=== PATIENT | female | born 1990 | race American Indian/Alaskan Native ===

== ENCOUNTER 2017-05-29 21:52 | Emergency (ER) | payer MEDICAID, OTHER ==
[2017-05-29] MEDS ORDERED: Sodium Chloride 0.9% 1,000 ML IV ONE (22:23)
--- NOTE | 2017-05-29 22:23 | C.PDOC ---
History Of Present Illness 27 y/o female A2 presents to ED with complaints of abdominal pain and constipation for 10 days. Patient states she has been eating more vegetables but has not had a bowel movement for 1 week. Patient denies fever, chills, nausea, vomiting, vaginal bleeding or any other complaints at this time. Time Seen by Provider: 05/29/17 22:22 Chief Complaint (Nursing): Abdominal Pain History Per: Patient History/Exam Limitations: no limitations Onset/Duration Of Symptoms: Days Current Symptoms Are (Timing): Still Present Past Medical History Reviewed: Historical Data, Nursing Documentation, Vital Signs Vital Signs: Last Vital Signs Temp 98.5 F 05/30/17 01:34 Pulse 88 05/30/17 01:34 Resp 16 05/30/17 01:34 BP 92/59 L 05/30/17 01:34 Pulse Ox 100 05/30/17 01:34 Family History: States: No Known Family Hx - Social History Hx Alcohol Use: No Hx Substance Use: No Review Of Systems Constitutional: Negative for: Fever, Chills Gastrointestinal: Positive for: Abdominal Pain, Constipation. Negative for: Nausea, Vomiting Genitourinary: Negative for: Vaginal Bleeding Physical Exam - Physical Exam Appears: No Acute Distress Skin: Warm Head: Normacephalic Oral Mucosa: Moist Cardiovascular: Rhythm Regular Respiratory: No Rales, No Rhonchi, No Wheezing Gastrointestinal/Abdominal: Bowel Sounds (Tympanic to percussion), Tenderness ( Mild diffuse tenderness), No Guarding, No Rebound Extremity: Capillary Refill (<2 seconds) Neurological/Psych: Oriented x3 ED Course And Treatment - Laboratory Results Result Diagrams: 05/29/17 23:23 05/29/17 23:23 O2 Sat by Pulse Oximetry: 98 (RA) Pulse Ox Interpretation: Normal Reevaluation Time: 01:44 Reassessment Condition: Improved Disposition Counseled Patient/Family Regarding: Studies Performed, Diagnosis, Need For Followup, Rx Given - Disposition Referrals: Breanna Prajapati MD [Medical Doctor] - Disposition: HOME/ ROUTINE Disposition Time: 22:23 Condition: FAIR Prescriptions: Polyethylene Glycol 3350 [Miralax] 17 gm PO DAILY #270 ml Instructions: Abdominal Pain (ED), Gas and Bloating (ED), Constipation (DC) Forms: [employer] (Bermudian) - Clinical Impression Clinical Impression: Abdominal pain, Constipation - Scribe Statement The provider has reviewed the documentation as recorded by the Toniibdayna Segovia All medical record entries made by the Ashok were at my direction and personally dictated by me. I have reviewed the chart and agree that the record accurately reflects my personal performance of the history, physical exam, medical decision making, and the department course for this patient. I have also personally directed, reviewed, and agree with the discharge instructions and disposition.
[2017-05-29 23:25] LABS: BASO % 0.5 % (0.0-2.0); EOS % 0.6 % (0.0-4.0); HEMATOCRIT 33.2 % (34.0-47.0); LYMPH # 2.7 K/uL (1.0-4.3); LYMPH % 34.6 % (20.0-40.0); MEAN CELL VOLUME 87.7 fL (81.0-99.0); MEAN CORPUSCULAR HEMOGLOBIN 29.2 pg (27.0-31.0); MEAN CORPUSCULAR HGB CONC 33.3 g/dL (33.0-37.0); MEAN PLATELET VOLUME 8.7 fL (7.2-11.7); MONO # 0.9 K/uL (0.0-0.8); RED CELL DISTRIBUTION WIDTH 13.4 % (11.5-14.5); WHITE BLOOD COUNT 7.8 K/uL (4.8-10.8)
[2017-05-29 23:36] LABS: CHLORIDE 102 mmol/L (98-107); SODIUM 136 mmol/L (132-148)
[2017-05-29 23:38] LABS: ALB/GLOB RATIO 1.1 (1.0-2.1); ALKALINE PHOSPHATASE 46 U/L (38-126); AST/SGOT 20 U/L (14-36); BILIRUBIN,TOTAL 0.4 mg/dL (0.2-1.3); BLOOD UREA NITROGEN 11 mg/dL (7-17); CARBON DIOXIDE 21 mmol/L (22-30); GFR AFRICAN-AMERICAN > 60; TOTAL PROTEIN 6.4 g/dL (6.3-8.3)
[2017-05-29 23:39] LABS: ALT/SGPT 22 U/L (9-52); CALCIUM 8.6 mg/dl (8.6-10.4); GLUCOSE,RANDOM 83 mg/dL (65-105)
[2017-05-30 01:27] LABS: RBC URINE 2 /hpf (0-3); URINE BILIRUBIN NEGATIVE (NEGATIVE); URINE BLOOD NEGATIVE (NEGATIVE); URINE COLOR Yellow (YELLOW); URINE GLUCOSE (UA) NORMAL (Normal); URINE KETONE NEGATIVE (NEGATIVE); URINE LEUKOCYTE ESTERASE NEG Leu/uL (Negative); URINE PROTEIN NEGATIVE (NEGATIVE); URINE UROBILINOGEN NORMAL mg/dL (0.2-1.0)
[2017-05-30 01:37] VITALS: BP 92/59; RESP 16; TEMP 98.5
[2017-05-30 02:00] VITALS: PULSE 90; O2SAT 100
== END 2017-05-30 02:16 | disposition home or self-care (01) ==
LOC: C.ER 21:52
DX: K59.00 Constipation, unspecified (principal); R10.9 Unspecified abdominal pain
CPT/HCPCS: 80053; 81001; 83690; 85025; 99285; J7040

== ENCOUNTER 2017-07-26 18:22 | Emergency (ER) | payer MEDICAID ==
[2017-07-26 18:39] VITALS: O2SAT 100
--- NOTE | 2017-07-26 19:27 | C.PDOC ---
History Of Present Illness Brianna Menendez is a 27 year old female, presents to the emergency department complaining of fall prior to arrival. Patient states she slipped at the top of the stairs, fell onto her buttocks, and down about 6 steps. She denies direct strike to her abdomen and denies any vaginal bleeding, head strike , LOC, or particular abdominal pain but is worried about her unborn baby so she came to ED. PMD: None provided. Time Seen by Provider: 07/26/17 18:52 Chief Complaint (Nursing): Abdominal Pain History Per: Patient History/Exam Limitations: no limitations Onset/Duration Of Symptoms: Hrs (prior to arrival) Abnormal Vaginal Bleeding: No : 6 Para: 1 Miscarriage: 4 Past Medical History Reviewed: Historical Data, Nursing Documentation, Vital Signs Vital Signs: Last Vital Signs Temp 98.4 F 07/26/17 22:23 Pulse 91 H 07/26/17 22:23 Resp 20 07/26/17 22:23 BP 114/72 07/26/17 22:23 Pulse Ox 100 07/26/17 22:23 Family History: States: Unknown Family Hx - Social History Hx Alcohol Use: No Hx Substance Use: No - Immunization History Hx Tetanus Toxoid Vaccination: No Hx Influenza Vaccination: No Hx Pneumococcal Vaccination: No Review Of Systems Except As Marked, All Systems Reviewed And Found Negative. Constitutional: Negative for: Other (No active bleeding, or loss of consciousness) Gastrointestinal: Negative for: Vomiting Genitourinary: Negative for: Dysuria Physical Exam - Physical Exam Additional Physical Exam Comments: Constitutional: No acute distress. Head: Normocephalic. Atraumatic. Eyes: PERRL. ENT: Moist mucous membranes. Neck: Supple. No midline tenderness Cardiovascular: Regular rate. Radial pulse 2+ bilaterally. Chest: No tenderness. Respiratory: Equal breath sounds bilaterally GI: Soft. Nontender. Nondistended. Gravid uterus Back: No CVA tenderness. No midline tenderness Musculoskeletal: No tenderness or swelling of extremities. Skin: No rash. Neurologic: Alert, no focal deficit. ED Course And Treatment O2 Sat by Pulse Oximetry: 100 (RA) Pulse Ox Interpretation: Normal Medical Decision Making Medical Decision Making: Initial Plan: --OB , Limited [US] --reevaluation US shows regan IUP, no abnormality, normal FHR. Scribe Attestation Written by Rasta Walters acting as a scribe for Marcus San MD All medical record entries made by the Scribe were at my direction and personally dictated by me. I have reviewed the chart and agree that the record accurately reflects my personal performance of the history, physical exam, medical decision making, and the department course for this patient. I have also personally directed, reviewed, and agree with the discharge instructions and disposition. Disposition - Disposition Disposition: HOME/ ROUTINE Disposition Time: 22:12 Condition: STABLE Instructions: Trauma During (ED) Forms: [facility] (Romansh) - Clinical Impression Clinical Impression: Fall,
--- NOTE | 2017-07-26 22:07 | US ---
EXAM: US CLINICAL HISTORY: 27 years old, female; Injury or trauma; Fall; Initial encounter; Abrasion; Lower; Injury date: 07/26/17; Injury details: Pt fell down the 6-7 stairs on her back; ; Additional info: Abdominal pain, fall, no vaginal bleeding TECHNIQUE: Real-time ultrasound of the maternal uterus (limited) with image documentation. COMPARISON: No relevant prior studies available. FINDINGS: Evaluation of the pelvis reveals a single intrauterine with a transverse presentation. The placenta is posterior and free of the cervical os. The cervix measures 3.7 cm in length and is closed. measurements correspond to an estimated gestational age of 17 weeks 1 day. cardiac activity is identified with a heart rate 148 beats per minute. motion visualized. IMPRESSION: Single live IUP as above. No acute sonographic abnormality. Limited study. Followup imaging recommended.
[2017-07-26 22:26] VITALS: BP 114/72; PULSE 91; RESP 20; TEMP 98.4
== END 2017-07-26 22:31 | disposition home or self-care (01) ==
LOC: C.ER 18:22
DX: Z04.3 Encounter for examination and observation following other accident (principal)

== ENCOUNTER 2017-12-06 23:11 | Emergency (ER) | payer MEDICAID ==
--- NOTE | 2017-12-07 00:24 | OBHP ---
Datetime: 12/06/2017 23:50 IP Adm Impression: , intrauterine ; No Active Labor IP Admit Plan: Discharge home Admit Comment, IP Provider: 27 y.o. , LMP 03/30/17, CECIL 01/04/18, EGA 35w 6d - slipped and fell in bathtub 1645 hours - while getting out. Fell on back, hit her side. While maneuvering the rail fo r the shower, bumped her abdomen. Fell and hit back of her head. Currently c/o headache. Denies nause a, vomiting, loss of conscousness, loss of urine or feces, blurred vision or spots. Called ambulance to come to E.D.; none arrived over the next 1 hour. Patient fell asleep; upon awakening, abdomen stil l felt sore - decided to come in for evaluation. (+) AFM; denies LOF, VB, Ctx. Soreness to abdomen, pain scale 3/10. Last had sexual intercourse 9 months ago. care: [address]; last vis it Wed 12/03; next appointment 12/10/17. Denies issues, except prev C/S - desires TOLAC. P Ob: 2008, C/S, female, 8lb 4oz, failed SHIRLENE, [facility] [place]; no complications. Spont ab x 2: 2012, 12 week s; 2013, 8 weeks; no D_C. 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 Denies H/O STI, abnormal Pap, fibroids or ovarian cysts PMH: denies PSH: D_C x 2, C/S NKDA Food allergy: strawberries = itching Meds: PNV Soc Hx: denies tobacco, illicit drug or EtOH use. With FOB x 9 years; lives with him and her daugh ter. Works at [employer]. Fam Hx: Mother alive 49 no med issues. Father 2006, complications from a car accident. N o known fam h/o cancer P.E.: as above. Mildly obese in NAD. Awake, alert, oriented to time, person and place. Pleasant a nd cooperative Assessment: 27 y.o. P1041, 35w 6d, prev C/S desires TOLAC. S/P fall with no significant impact to abdomen. BPS /8: NST reactive/ Category 1 tracing. Patient is clinically stable. Cleared from Ob p erspective. Referred to E.D. for evaulatoin of headache. Plan: 1) Transfer to E.D. 2) Keep all scheduled appointments 3) Reviewed S/S PTL Pelvic Type - PN: Not Done Extremities - PN: Normal Abdomen - PN: Normal Back - PN: Normal Breast - PN: Not Done Lungs - PN: Normal Heart - PN: Normal Thyroid - PN: Not Done Neurologic - PN: Normal HEENT - PN: Normal General - PN: Normal FHR - Baseline A Provider: 135 Contraction Comments Provider: none Comments, ACOG Physical Exam: Abdomen: Obese. Non tender in all quadrants; minimal mid epigastric di scomfort to deep palpation. Healed Pfannenstiel scar. fundal height 36 cm Bedside sono/BPP: cephalic, fundal placenta. (+) FBM; (+) tone. HUMBERTO 10.36 cm. (+) cardiac activity All other systems reviewed and are negative Gestation - Est Wks by US: 35w 6d EGA AdmitDate IP: 36.0 Vital Signs Provider: Reviewed; Within Normal Limits IP Chief Complaint: Trauma/Fall NICHD Variability Prov Fetus A: Moderate 6-25bpm NICHD Accel Fetus A IP Provider: 15X15 FHR Category Provider Fetus A: Category I NICHD Decel Fetus A IP Provider: None Dilatation, Provider: deferred Genitourinary Exam: Not Done DTRs - PN: Not Done
[2017-12-07 00:28] VITALS: BP 120/75; PULSE 101; RESP 18; TEMP 98; O2SAT 99
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
== END 2017-12-07 00:59 | disposition home or self-care (01) ==
LOC: C.EROB 23:11 → C.ER 23:11
DX: S20.229A Contusion of unspecified back wall of thorax, initial encounter (principal); W18.2XXA Fall in (into) shower or empty bathtub, initial encounter; Y93.E1 Activity, personal bathing and showering; Y92.002 Bathroom of unspecified non-institutional (private) residence as the place of occurrence of the external cause

== ENCOUNTER 2017-12-24 12:31 | Emergency (ER) | payer MEDICAID ==
[2017-12-24 12:50] VITALS: BMI 34.6
--- NOTE | 2017-12-24 14:51 | US ---
Indication: S<D, prev C/S. Comparison: Limited OB ultrasound performed 07/26/17 Technique: Real-time ultrasound was performed through the pelvis. Findings: There is a single living fetus in cephalic presentation. Posterior fundal placenta. The placenta is not previa. There are no adnexal masses or cysts evident. Cervix length measures approximately 3.1 cm. Measurements and calculations: Fetus has a composite sonographic age of 37 weeks 1 day. This calculation is based on the biparietal diameter, head circumference, abdominal circumference, and femur length. Estimated heart rate 151 beats per min. Estimated weight 3159 g. HUMBERTO 10.9 cm, within normal limits. Biophysical profile: movements 2/2 breathing 2/2 tone 2/2 Amniotic fluid 2/2 Total score impression: 06/10 Impression: Single living fetus with a composite sonographic age of 37 weeks 1 day. Estimated heart rate 151 beats per min. Biophysical profile of 8 out of 8.
[2017-12-24 19:09] VITALS: BP 118/73; PULSE 88
--- NOTE | 2017-12-24 22:31 | OBHP ---
Datetime: 12/24/2017 12:52 IP Adm Impression: Term, intrauterine IP Chief Complaint Other: S<D IP Adm Impression Other: Prev C/S IP Admit Plan: Discharge home Admit Comment, IP Provider: 27 y.o. , CECIL 01/04/18, EGA 38w 5d referred from primary Ob provid er for USG secondary to S<D - fundal height 35 cm in office. (+) AFM; denies LOF, VB, Ctx. care: Dr. Bedolla, previous C/S. P Ob: 2008, C/S, female, 8lb 4oz, failed [place]LEN[place], [facility] [place]; no complications. Spont ab x 2: 2012, 12 week s; 2013, 8 weeks; no D_C. 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 Denies H/O STI, abnormal Pap, fibroids or ovarian cysts PMH: denies PSH: D_C x 2, C/S NKDA Food allergy: strawberries = itching Meds: PNV Soc Hx: denies tobacco, illicit drug or EtOH use. With FOB x 9 years; lives with him and her daugh ant. Works at [employer], [employer]. P.E.: as above. Mildly obese in NAD. Awake, alert, oriented to time, person and place. Pleasant an d cooperative Assessment: 27 y.o. P1041, 38w 5d, prev C/S (patient desires TOLAC); S<D for ultrasound with biometry and HUMBERTO check. Category 1 tracing. Clinically stable. Plan: 1) Ob ultrasound, as above. 2) Observe Late entry: ultraosund report had been reviewed and findings had been discussed with Dr. Bedolla (AGA 37w 3d, EFW 3159 grams; cephalic; HUMBERTO 10.9 cm ). Patient was discharged home. Advised to keep next appointm ent, 01/01/18. Plan: 1) discharge home 2) Reviewed S/S labor Pelvic Type - PN: Not Done Extremities - PN: Normal Abdomen - PN: Normal Back - PN: Normal Breast - PN: Not Done Lungs - PN: Normal Heart - PN: Normal Thyroid - PN: Not Done Neurologic - PN: Normal HEENT - PN: Normal General - PN: Normal Presentation-Admit: Vertex FHR - Baseline A Provider: 140 Membranes, Provider: Intact Contraction Comments Provider: none Comments, ACOG Physical Exam: Abdomen: Soft. Non tender in all quadrants. Fundal height 37cm All other systems reviewed reviewed and are negative Gestation - Est Wks by US: 38w 5d EGA AdmitDate IP: 38.3 Vital Signs Provider: Reviewed IP Chief Complaint: Other NICHD Variability Prov Fetus A: Moderate 6-25bpm NICHD Accel Fetus A IP Provider: 15X15 FHR Category Provider Fetus A: Category I NICHD Decel Fetus A IP Provider: None Dilatation, Provider: deferred Genitourinary Exam: Not Done DTRs - PN: Normal
== END 2017-12-24 15:06 | disposition home or self-care (01) ==
LOC: C.EROB 12:31
DX: O26.893 Other specified pregnancy related conditions, third trimester (principal); Z3A.38 38 weeks gestation of pregnancy

== ENCOUNTER 2018-01-08 13:32 | Inpatient (IN) | payer MEDICAID ==
[2018-01-08 13:47] VITALS: BMI 39.1
--- NOTE | 2018-01-08 16:28 | US ---
OB limited/biophysical profile Indication: Term Technique: Grayscale, color flow, and M-mode sonographic images of the single live intrauterine were obtained. Comparison: None available. Findings: There is a single live intrauterine gestation. The fetus is in cephalic position. Fundal placenta There is no evidence of previa. Low HUMBERTO measures approximately 5.2 cm . M-mode imaging demonstrates a heart rate to be 144.4 beats per min. Cervix length measures approximately 2.5 cm. The study was performed for emergent evaluation, and the whole anatomic survey of the fetus was not performed. Fetus has a composite sonographic age of 39 weeks, 1 days plus/-1 week. This calculation is based on the biparietal diameter, head circumference, abdominal circumference, and femur length. Estimated weight 3655 g. movements 2/2 breathing 2/2 tone 2/2 Amniotic fluid 2/2 ; single amniotic fluid pocket noted measuring greater than 2 cm (2.1 cm). Total score impression: 8/8 Impression: Biophysical profile of 8 out of 8. Single live intrauterine in cephalic position with a heart rate of 144.4 beats per min. Low HUMBERTO measuring consistent with oligohydramnios. Correlate clinically.
[2018-01-08] MEDS ORDERED: ceFAZolin 2 GM in Sodium Chloride 0.9% 100 ML IVPB ONE (16:42)
[2018-01-08] MEDS ORDERED: Sodium Citrate/Citric Acid 15 ml Sol PO ONE (16:42)
[2018-01-08] MEDS ORDERED: Lactated Ringer's 1,000 ML IV SCH (16:45)
[2018-01-08] MEDS ORDERED: ceFAZolin IV 2 gm in Dextrose 2 GM/50 ML BAG IVPB ONE ×2 (17:00→18:03)
[2018-01-08] MEDS ORDERED: Morphine 1 mg/ml preservative-free Inj(Duramorph) ONE (17:17)
[2018-01-08 17:29] LABS: BASO % 0.2 % (0.0-2.0); EOS # 0.1 K/uL (0.0-0.7); EOS % 0.7 % (0.0-4.0); LYMPH # 2.5 K/uL (1.0-4.3); LYMPH % 33.2 % (20.0-40.0); MEAN CELL VOLUME 87.8 fL (81.0-99.0); MEAN CORPUSCULAR HEMOGLOBIN 30.1 pg (27.0-31.0); MEAN CORPUSCULAR HGB CONC 34.3 g/dL (33.0-37.0); MEAN PLATELET VOLUME 8.3 fL (7.2-11.7); MONO # 0.7 K/uL (0.0-0.8); MONO % 9.6 % (0.0-10.0); NEUT # 4.3 K/uL (1.8-7.0); NEUT % 56.3 % (50.0-75.0); RBC 4.31 Mil/uL (3.80-5.20); RED CELL DISTRIBUTION WIDTH 13.7 % (11.5-14.5); WHITE BLOOD COUNT 7.6 K/uL (4.8-10.8)
[2018-01-08] MEDS ORDERED: Sodium Citrate/Citric Acid 15 ml Sol ONE (17:37)
[2018-01-08 17:44] LABS: BLOOD UREA NITROGEN 5 mg/dL (7-17); CALCIUM 8.9 mg/dl (8.6-10.4); GFR AFRICAN-AMERICAN > 60; GFR NON-AFRICAN AMERICAN > 60
[2018-01-08] MEDS ORDERED: Oxytocin 20 units in LR 2,000 ML IV ONE (18:04)
[2018-01-08] MEDS ORDERED: Phenylephrine 10 mg/ml Inj ONE (18:47)
--- NOTE | 2018-01-08 19:47 | OBADHP ---
Datetime: 01/08/2018 17:00 Admit Comment, IP Provider: 27 y.o. , CECIL 01/04/18, EGA 40w 4d referred from primary Ob provid er for Biophysical profile due to post-dates. Patient has no complaints at this time. She denies any fever, chills, chest pain, SOB, abdominal pain, nausea, vomiting, diarrhea, constipation, or any uri nary symptoms. P Ob: 2008, C/S, female, 8lb 4oz, [place] [facility] [place] no complications. Spont ab x 2: 2012, 12 week s; 2013, 8 weeks; no D_C. 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 Denies H/O STI, abnormal Pap, fibroids or ovarian cysts PMH: denies PSH: D_C x 2, C/S NKDA Food allergy: strawberries = itching Meds: PNV Soc Hx: denies tobacco, illicit drug or EtOH use. With FOB x 9 years; lives with him and her charline cain. Works at [employer]. Gen: Mildly Obese, AAOx3 Cardiac: +S1, +S2, RRR, no Murmurs Pulm: CTA B/L Abdomen: Gravid, Non-tender Extremeties: No Edema Assessment: 27 y.o. P1041, 40w 4d, prev C/S (patient desires TOLAC); S<D for ultrasound with biometry and HUMBERTO check. Category 1 tracing. Clinically stable. Plan: 1. BPP: SHowed HUMBERTO of 5.1 2. Attending (Dr. Alaniz) discussed with primary OB (Dr. Bedolla). Primary states to plan for C-sec tion due to borderline HUMBERTO. 3. Pre-Op Orders: CBC/CMP, Type and Screen, HIV, NPO, Cefazolin 2 grams, Pepcid, LR @ 125mls/hr, R eglan, Bicitra, TOCO, Monitering. Discussed with Attending (Dr. Alaniz) Deedee Wesley, PGY1 ob addendum: pt seen and examined by me. d/w pt indic for repeat cd. informed consent obtained IP Chief Complaint: Other EGA AdmitDate IP: 40.4 IP Adm Impression: Postterm, intrauterine IP Admit Plan: Admit to unit; Observation/Evaluation Datetime: 12/24/2017 12:52 IP Chief Complaint Other: S<D IP Adm Impression Other: Prev C/S Pelvic Type - PN: Not Done Extremities - PN: Normal Abdomen - PN: Normal Back - PN: Normal Breast - PN: Not Done Lungs - PN: Normal Heart - PN: Normal Thyroid - PN: Not Done Neurologic - PN: Normal HEENT - PN: Normal General - PN: Normal Presentation-Admit: Vertex FHR - Baseline A Provider: 140 Membranes, Provider: Intact Contraction Comments Provider: none Comments, ACOG Physical Exam: Abdomen: Soft. Non tender in all quadrants. Fundal height 37cm All other systems reviewed reviewed and are negative Gestation - Est Wks by US: 38w 5d Vital Signs Provider: Reviewed NICHD Variability Prov Fetus A: Moderate 6-25bpm NICHD Accel Fetus A IP Provider: 15X15 FHR Category Provider Fetus A: Category I NICHD Decel Fetus A IP Provider: None Dilatation, Provider: deferred Genitourinary Exam: Not Done DTRs - PN: Normal
--- NOTE | 2018-01-08 19:54 | OBDS ---
DELIVERY PERSONNEL Delivery Doctor: Madhavi Ruiz MD Scrub Nurse: Carmen Singletary Deburring Machine Operator: Armando Thompson RN Anesthesiologist: leonela MATERNAL INFORMATION Delivery Anesthesia: Spinal Medications in Delivery: ee anesthesia note Estimated Blood Loss (ml): 800 Placenta Cultured: No Maternal Complications: None Other Maternal Complications: post dates , oligo, previous c/s RN Comments: live baby boy 9/9 Provider Comments: preop dx: 40.4wks; oligo; prior cd postop dx: same proced: rpeat cd surg: [facility] 1st asst: dr martinez 2nd asst: amaurice residen anesth: spinal- dr gipson [id number] singletary to drain plac to path findings: viable male direct op 9_9 [id number] neon to nbn pt to rr LABOR SUMMARY EDC: 01/04/2018 00:00 No. Babies in Womb: 1 Attempted: No Labor Anesthesia: None LABOR INFORMATION Reason for Induction: Not Applicable Oxytocin: N/A Group B Beta Strep: Positive Antibiotics # of Doses: 1 (Mefoxin) Antibiotics Time of Last Dose: 18:00 Steroids Given: None Reason Steroids Not Administered: Not Applicable MEMBRANES Membranes Rupture Method: Artificial Rupture of Membranes: 01/08/2018 18:45 Length of Rupture (hrs): 0.02 Amniotic Fluid Color: Clear Amniotic Fluid Amount: Moderate Amniotic Fluid Odor: Normal STAGES OF LABOR Stage 3 hrs: 0 Stage 3 min: 1 VAGINAL DELIVERY Episiotomy: None Laceration Extension: N/A Laceration Type: None CSECTION DELIVERY Primary Indication: Repeat Elective Secondary Indication: Other Other Secondary Indication: oligo CSection Urgency: Elective CSection Incidence: Repeat Labor: N/A Elective: Elective CSection Incision: Lower Uterine Transverse BABY A INFORMATION Delivery Date/Time: 01/08/2018 18:46 Method of Delivery: Born in Route : No : N/A Forceps: N/A Vacuum Extraction: N/A Shoulder Dystocia : No SHOULDER DYSTOCIA BABY A Infant Delivery Date/Time: 01/08/2018 18:46 PRESENTATION/POSITION BABY A Presentation: Cephalic Cephalic Presentation: Vertex Vertex Position: direct op Breech Presentation: N/A PLACENTA INFORMATION BABY A Placenta Delivery Time : 01/08/2018 18:47 Placenta Method of Delivery: Manual Removal Placenta Status: Delivered SCORES BABY A Heart Rate 1 min: >100 bpm Resp Effort 1 min: Good Cry Reflex Irritability 1 min: Cough or Sneeze or Pulls Away Muscle Tone 1 min: Active Motion Color 1 min: Body Spelter, Extremities Blue Resuscitation Effort 1 min: Tactile Stimulation SCORE 1 MIN: 9 Heart Rate 5 min: >100 bpm Resp Effort 5 min: Good Cry Reflex Irritability 5 min: Cough or Sneeze or Pulls Away Muscle Tone 5 min: Active Motion Color 5 min: Body Spelter, Extremities Blue Resuscitation Effort 5 min: Tactile Stimulation SCORE 5 MIN: 9 INFANT INFORMATION BABY A Gestational Age at Delivery: 40.4 Gestational Status: Term Outcome : Liveborn Condition : Stable Infant Sex: Male IDENTIFICATION/MEDS BABY A ID Band Number: [id number] ID Band Location: Left Leg; Left Arm Sensor Applied: Yes Sensor Number: [id number] Sensor Location : Cord Clamp Vitamin K Given : Not Given Erythromycin Given: Not Given WEIGHT/LENGTH BABY A Infant Birthweight (gms): 3345 Infant Weight (lb): 7 Infant Weight (oz): 6 Infant Length Inches: 20.00 Length cms: 50.8 CORD INFORMATION BABY A No. Cord Vessels: 3 Nuchal Cord : N/A Cord Blood Taken: Yes Infant Suction: Mouth; Nose ASSESSMENT BABY A Complications: None Physical Findings at Delivery: Within Normal Limits Infant Respirations: Appears Normal Manager Primary/ALS Called : No Infant Care By: Dr. España/Rhona CARVAJAL Transferred To: [facility]
[2018-01-08 22:02] LABS: SQUAMOUS EPITHIAL 2 /hpf (0-5); URINE BACTERIA RARE (<OCC); URINE BILIRUBIN NEGATIVE (NEGATIVE); URINE BLOOD NEGATIVE (NEGATIVE); URINE CLARITY Clear (Clear); URINE COLOR Yellow (YELLOW); URINE GLUCOSE (UA) NORMAL (Normal); URINE LEUKOCYTE ESTERASE NEG Leu/uL (Negative); URINE PROTEIN NEGATIVE (NEGATIVE); URINE UROBILINOGEN NORMAL mg/dL (0.2-1.0)
[2018-01-08] MEDS: Simethicone 80 mg Chewtab PO SCH (22:49)
--- NOTE | 2018-01-09 06:03 | OP ---
PROCEDURE DATE: 01/08/2018 PREOPERATIVE DIAGNOSES: 1. 40.4 weeks gestation. 2. Oligohydramnios. 3. History of prior delivery. POSTOPERATIVE DIAGNOSES: 1. 40.4 weeks gestation. 2. Oligohydramnios. 3. History of prior delivery. PROCEDURE: Repeat low transverse section. SURGEON: Jenise Bedolla MD CARBURETOR MECHANIC: Frank Claire MD SECOND HOIST WORKER: Resident, Dr. Velazquez. TYPE OF ANESTHESIA: Spinal. ANESTHESIOLOGIST: Dr. Zepeda. ESTIMATED BLOOD LOSS: 800 mL. Crowder catheter to drainage. PATHOLOGY: Placenta sent. FINDINGS: Showed a viable male in direct OP presentation with clear amniotic fluid. Apgars of 9 and 9 and weight of 3345 grams. DESTINATION: to nursery. The patient to recovery room in satisfactory condition. INDICATIONS: The patient is a 27-year-old female 6, para 1-0-4-1 with an EDC of 01/04/2018 who presented for her routine OB visit today at 40.4 weeks. The patient desired and was awaiting trial of labor. Following her OB visit, she was sent to the hospital for NST and HUMBERTO check due to gestatioal age of 40.4 weeks. The NST was reactive. HUMBERTO was found to be 5. The patient was admitted for a repeat section. Risks, benefits, and indications discussed with the patient. She agreed with the planned procedure. DESCRIPTION OF THE PROCEDURE: The patient was brought to the operating room where she underwent her spinal anesthesia without complications. She was then placed in dorsal supine position with a leftward tilt and prepped and draped in the routine sterile fashion. A Pfannenstiel skin incision was made at the site of the old scar with the scalpel. The underlying subcutaneous tissue was then incised with the Bovie. The rectus fascia was incised in midline and the incision extended bilaterally. Dense adhesions were noted in the subcutaneous tissue down to the rectus fascia. The inferior rectus fascial edge was grasped with Kochers, and the underlying rectus muscle dissected off. The same procedure was performed along the superior rectus fascial edge. The abdominal cavity was entered and the peritoneum was incised superiorly and inferiorly. The bladder flap was created using sharp dissection. The bladder blade was placed to retract the bladder further inferiorly. A low uterine transverse incision was made with the scalpel. The uterine incision was then entered bluntly. The incision was extended in a cephalocaudal manner. The amniotic membrane was ruptured, clear fluid was noted. The was noted to be in direct occiput posterior presentation. The was delivered. The cord was clamped and cut. The mouth and nares were suctioned. The baby was handed out to the awaiting shoe lining fitter. Cord blood was collected. The placenta was expresssed and noted to be intact. The uterus was exteriorized and cleared of all clots and debris. The uterine incision was reapproximated with 1-0 Chromic in a running locked fashion followed by an imbricated stitch with 0 Monocryl. A left inferior extension was noted along the left lateral area of the uterus. This was reapproximated with 0 Monocryl in a running locked fashion. Good hemostasis was confirmed. The abdomen was irrigated and cleared of all clots and debris. The uterine incision was reinspected. Good hemostasis confirmed. The pelvis was irrigated and cleared of all clots and debris. The peritoneum was reapproximated with 2-0 Vicryl in a running fashion. The muscle was reapproximated with 2-0 Vicryl in simple interrupted fashion. The fascia was approximated with 0 Vicryl in a running fashion beginning atthe right lateral edge and going to the midline and another stitch beginning in the left lateral edge and going to the midline. Each suture was respectively tied. The wound was irrigated and good hemostasis confirmed. The subcutaneous tissue was reapproximated with 2-0 plain in a simple interrupted fashion. The wound was reapproximated with 0 Vicryl in a subcuticular fashion. All sponge, lap, needle, and instrument counts were correct. The patient returned to recovery room in satisfactory condition. Dr. Claire was the first blacksmith assistant. He assisted in surgical entry, surgical hemostasis, exposure, delivery of baby and closure. His assistance was essential to the performance of the procedure. Jenise Bedolla MD ULISSES
[2018-01-09 08:21] LABS: BASO % 0.4 % (0.0-2.0); EOS % 0.4 % (0.0-4.0); HEMOGLOBIN 11.4 g/dL (11.0-16.0); LYMPH # 1.3 K/uL (1.0-4.3); LYMPH % 13.4 % (20.0-40.0); MEAN CELL VOLUME 87.8 fL (81.0-99.0); MEAN CORPUSCULAR HEMOGLOBIN 30.6 pg (27.0-31.0); MEAN CORPUSCULAR HGB CONC 34.9 g/dL (33.0-37.0); MEAN PLATELET VOLUME 8.1 fL (7.2-11.7); MONO # 0.9 K/uL (0.0-0.8); MONO % 9.3 % (0.0-10.0); NEUT # 7.7 K/uL (1.8-7.0); NEUT % 76.5 % (50.0-75.0); RBC 3.72 Mil/uL (3.80-5.20); RED CELL DISTRIBUTION WIDTH 13.2 % (11.5-14.5)
[2018-01-09] MEDS: Simethicone 80 mg Chewtab PO SCH ×4 (10:15→21:36)
[2018-01-09] MEDS: Oxycodone/Acetaminophen 5/325 mg Tab PO PRN ×2 (15:02→21:35)
--- NOTE | 2018-01-09 18:00 | OBPPN ---
Datetime: 01/09/2018 08:06 PP Pain Prov: Within normal limits PP Nausea Prov: Denies PP Flatus Prov: Yes PP Progress Note Prov: Patient seen and examined at bedside, No overnight events per nursing. Patie nt denies any fevers, chills, headahce, dizziness, SOB, Chest pain, or any urinary symptoms. She is p assing flatus. She has not yet had a bowel movements. She denies abdominal pain but does complain of some abdominal discomfort. Patient states she wishes to ambulate. She is breast feeding. VS: T-98.4, P-97, RR-18, BP 111/69, O2-98%RA Gen: AAOx3, NAD Cardio: +S1,+S2 Pulm: CTA Abdomen: non-tender, Fundus 2 finger breadths below umbilicus. Incision C/D/I Ext: No Edema Labs: H/H-09/06/32.6, WBC-10. 27 year old s/p Day # 1 -Stable, afebrile -Pain control: percocet PRN -Post op H/H stable -Encourage ambulation and hydration -Encourage breast feeding -Start CLD -D/C Crowder -Continue routine care -Further Recs as per Dr. Chioma Wesley, PGY1 (Annotations: Data stored by GARRETT on behalf of user) Vital Signs Provider PP: Reviewed
[2018-01-09] MEDS ORDERED: Bisacodyl 5mg EC Tab PO ONE (18:43)
--- NOTE | 2018-01-10 08:14 | OBPPN ---
Datetime: 01/10/2018 08:09 PP Pain Prov: Within normal limits PP Nausea Prov: Denies PP Flatus Prov: No PP BM Prov: No PP Heart Prov: Normal PP Lungs Prov: Normal PP Abdomen/Uterus Prov: Normal PP Lochia Prov: Normal PP CVA Tenderness Prov: Normal PP Extremities Prov: Normal PP C/S Incision Prov: Normal PP Progress Prov: Not Applicable PP Impression Prov: Normal progression PP Plan Prov: Continue present management PP Progress Note Prov: S-patient states that her pain is well controlled.bleeding minimal.denies angelo sea, vomiting, headache, chest pain, shortness of breath, numbness or tingling in handsa nd feet.has sill not passed flautus O-VSS Afebrile Fundus firm and below umbilicus extremities no calf tenderness A/P Patient s/p vaginal delivery POD 2 s/p csection doing well -continue simethicone,. colace =monitor closelu -encourage ambulation.continue colace and simethicone Vital Signs Provider PP: Reviewed; Within Normal Limits
[2018-01-10] MEDS: Simethicone 80 mg Chewtab PO SCH ×4 (09:05→21:09)
[2018-01-10] MEDS: Oxycodone/Acetaminophen 5/325 mg Tab PO PRN ×3 (09:06→23:08)
[2018-01-11] MEDS: Simethicone 80 mg Chewtab PO SCH ×2 (09:07→13:12)
[2018-01-11] MEDS: Oxycodone/Acetaminophen 5/325 mg Tab PO PRN ×2 (09:07→15:24)
--- NOTE | 2018-01-11 11:46 | OBPPN ---
Datetime: 01/11/2018 08:00 PP Pain Prov: Within normal limits PP Nausea Prov: Denies PP Flatus Prov: Yes PP BM Prov: Yes PP Breasts Prov: Normal PP Heart Prov: Normal PP Lungs Prov: Normal PP Abdomen/Uterus Prov: Normal PP Lochia Prov: Normal PP Vulva/Perineum Prov: Not Done PP CVA Tenderness Prov: Normal PP Extremities Prov: Normal PP C/S Incision Prov: Normal PP Progress Prov: Normal PP Comments Phys Exam Prov: Abdomen: Obese. Soft. Non distended. Fundus firm, mobile, mild and appro priately tender. Mild lochia rubra Extremities: no calf tenderness, cyanosis or edema All other systems reviewed and are negative PP Impression Prov: Normal progression PP Plan Prov: Discharge PP Progress Note Prov: Patient received in room 461, sleeping - easily awakeneed. prim arily. Denies nausea, vomiting; ambulating and voidiing without difficulty. P.E.: as above. Mildly obese in NAD. Awake, alert, oriented to time, person and place. Pleasant a nd cooperative - POD#1 H/H 11.4/32.6 Assessment: POD#3, 27 y.o. P2, S/P repeat LTCS. Afebrile, vital signs stable. Returning GI and functions. Patient desires circumcision for : possible complications discussed. Consent sign ed, dated, witnessed and placed in 's chart. Clinically stable. Plan: 1) Discharge home 2) F/U 01/14/18, Dr. Bedolla - Dr Bedolla is aware Vital Signs Provider PP: Reviewed; Within Normal Limits
[2018-01-12 00:14] VITALS: BP 124/70; PULSE 88; RESP 18; TEMP 97.1; O2SAT 99
== END 2018-01-11 20:00 | disposition home or self-care (01) | DRG 371 ==
LOC: C.EROB 13:32 → C.4D 16:46 → EEVIPCON 16:46 → C.4M 22:20
PROVIDERS: ADMIT Obstetrics & Gynecology; ATTEND Obstetrics & Gynecology
PROC: 10D00Z1 Extraction of Products of Conception, Low, Open Approach (ICD-10-PCS; principal; 2018-01-08)
DX: O34.211 Maternal care for low transverse scar from previous cesarean delivery (principal); O41.03X0 Oligohydramnios, third trimester, not applicable or unspecified; O48.0 Post-term pregnancy; O99.214 Obesity complicating childbirth; Z3A.40 40 weeks gestation of pregnancy; Z68.39 Body mass index [BMI] 39.0-39.9, adult; Z37.0 Single live birth